=== PATIENT | male | born 1980 | race Two or more races ===

== ENCOUNTER 2022-10-21 16:39 | Inpatient (IN) | payer MEDICAID ==
[~2022-10-21] VITALS: Ht 165.1 cm; Wt 81.8 kg
[2022-10-21] MEDS ORDERED: SODIUM CHLORIDE 0.9% 1,000 ML IV ONE (18:30)
[2022-10-21 18:43] LABS: AMPHET/METH SCREEN,URINE NEGATIVE (NEGATIVE); BARBITURATE SCREEN, URINE NEGATIVE (NEGATIVE); BENZODIAZEPINES SCREEN,URINE NEGATIVE (NEGATIVE); CANNABINOID SCREEN,URINE POSITIVE (NEGATIVE); COCAINE SCREEN,URINE POSITIVE (NEGATIVE); METHADONE SCREEN, URINE NEGATIVE (NEGATIVE); OPIATE SCREEN,URINE NEGATIVE (NEGATIVE); PHENCYCLIDINE SCREEN,URINE NEGATIVE (NEGATIVE)
[2022-10-21] MEDS ORDERED: NALOXONE HCL 10 MG in DEXTROSE 5%-WATER 240 ML IV PRN ×2 (19:00→20:00)
[2022-10-21 19:12] LABS: BASOPHILS % (AUTO) 1.8 % (0.0-2.0); EOSINOPHILS % (AUTO) 1.6 % (1.0-6.0); HEMATOCRIT 54.2 % (41-53); HEMOGLOBIN 17.9 g/dL (13.5-17.5); LYMPHOCYTES # (AUTO) 1.8 K/uL (1.0-4.8); LYMPHOCYTES % (AUTO) 48.7 % (22.0-44.0); MEAN CORPUSCULAR HGB CONC 32.9 G/dL (31.0-37.0); MEAN CORPUSCULAR VOLUME 94 fL (80-100); MONOCYTES # (AUTO) 0.4 K/uL (0.1-1.0); MONOCYTES % (AUTO) 10.6 % (2.0-9.0); NEUTROPHILS # (AUTO) 1.4 K/uL (1.8-7.7); NEUTROPHILS % (AUTO) 37.3 % (40.0-70.0); PLATELET COUNT (AUTO) 267 K/uL (150-450); RED BLOOD CELL COUNT(AUTO) 5.76 MIL/uL (4.50-5.90); RED CELL DISTRIBUTION WIDTH 13.2 % (11.5-14.5)
[2022-10-21 19:16] LABS: ANION GAP 12 mmol/L (8-16); CALCIUM, TOTAL 8.7 mg/dL (8.8-10.5); CARBON DIOXIDE 24 mmol/L (22-29); CHLORIDE 103 mmol/L (98-107); CREATININE 1.28 mg/dL (0.60-1.30); GLOMERULAR FILTR. RATE CALC > 60 mL/min (>60); GLUCOSE,RANDOM 130 mg/dL (70-110); POTASSIUM 4.1 mmol/L (3.5-5.1); SODIUM SERUM 139 mmol/L (136-145); UREA NITROGEN, BLOOD 15 mg/dL (7-18)
[2022-10-21] MEDS ORDERED: ETOMIDATE 2 MG/ML 10 ML VIAL IVP ONE (19:30)
[2022-10-21] MEDS ORDERED: SUCCINYLCHOLINE CHLORIDE 20 MG/ML 10 ML VIAL IVP ONE (19:30)
[2022-10-21] MEDS: PROPOFOL 1000 MG/ISO-OSM 100 ML IV PRN ×2 (19:37→19:54)
[2022-10-21] MEDS ORDERED: MAGNESIUM SULFATE 2 GM, MVI, ADULT NO.1 WITH VIT K 10 ML, THIAMINE 100 MG, FOLIC ACID 1... IV ONE ×5 (20:00)
[2022-10-21] MEDS ORDERED: ZOLPIDEM TARTRATE 5 MG TABLET PO PRN (20:00)
[2022-10-21] MEDS ORDERED: FUROSEMIDE 40 MG/4 ML VIAL IVP ONE (20:00)
[2022-10-21] MEDS ORDERED: ONDANSETRON HCL 4 MG/2 ML VIAL IVP PRN (20:00)
[2022-10-21] MEDS ORDERED: MAGNESIUM HYDROXIDE SUSPENSION 30 ML UDCUP PO PRN (20:00)
[2022-10-21] MEDS ORDERED: BISACODYL 10 MG RECTAL RECTAL SUPPOSITORY PR PRN (20:00)
[2022-10-21] MEDS ORDERED: MORPHINE SULFATE 2 MG/ML SYRINGE IVP PRN (20:00)
[2022-10-21] MEDS ORDERED: HYDROCODONE/ACETAMINOPHEN 5-325 MG TABLET PO PRN (20:00)
[2022-10-21] MEDS: ACETAMINOPHEN 325 MG TABLET PO PRN (20:29)
[2022-10-21 20:44] LABS: ABG BASE EXCESS -12.5 mmol/L (-2.0-3.0); ABG CARBOXYHEMOGLOBIN 0.2 % (0.0-1.5); ABG HCO3 14.3 mmol/L (22.0-26.0); ABG METHEMOGLOBIN 0.4 % (0.0-1.5); ABG OXYGEN CONTENT 24.4 mL/dL (15.0-23.0); ABG OXYGEN SATURATION 86.3 % (95.0-98.0); ABG OXYHEMOGLOBIN 85.8 % (94.0-100.0); PO2, ARTERIAL BG 72.9 mmHg (88.0-96.0); SOURCE, BLOOD GAS ARTERIAL; TEMPERATURE, FAHRENHEIT, BG 101.8 FAHREN (96.0-98.6)
[2022-10-21 20:45] LABS: ABG PCO2 67 mmHg (35-45); ABG PH 7.051 (7.35-7.450); ABG TOTAL HEMOGLOBIN 20.3 G/dL (12.0-18.0); SITE, BLOOD GAS RT RADIAL; VT, ABG 600 ml
[2022-10-21] MEDS ORDERED: ACETAMINOPHEN 650 MG RECTAL SUPPOSITORY PR PRN (20:45)
[2022-10-21 20:46] LABS: PEEP,BG 10 cm H2O
[2022-10-21] MEDS: DOCUSATE SODIUM 100 MG CAPSULE PO SCH (21:00)
[2022-10-21] MEDS ORDERED: SODIUM CHLORIDE 0.9% 500 ML IV ONE (21:15)
[2022-10-21] MEDS: PHENYLEPHRINE 200 MG/D5%-WATER 250 ML IV PRN (21:46)
[2022-10-21] MEDS: PIPERACILLIN/TAZO 3.375 GM/D5W 50 ML IV SCH (21:50)
[2022-10-21 22:13] LABS: ABG BASE EXCESS -9.9 mmol/L (-2.0-3.0); ABG CARBOXYHEMOGLOBIN 0.3 % (0.0-1.5); ABG METHEMOGLOBIN 0.4 % (0.0-1.5); ABG OXYGEN CONTENT 24.4 mL/dL (15.0-23.0); ABG OXYGEN SATURATION 93.6 % (95.0-98.0); ABG OXYHEMOGLOBIN 92.9 % (94.0-100.0); ABG PCO2 48 mmHg (35-45); ABG TOTAL HEMOGLOBIN 18.7 G/dL (12.0-18.0); PO2, ARTERIAL BG 84.5 mmHg (88.0-96.0); SOURCE, BLOOD GAS ARTERIAL
[2022-10-21 22:14] LABS: ABG PH 7.199 (7.35-7.450); PEEP,BG 10 cm H2O; SITE, BLOOD GAS RT RADIAL; VT, ABG 600 ml
[2022-10-21] MEDS: MIDAZOLAM HCL 100 MG in SODIUM CHLORIDE 0.9% 180 ML IV PRN (22:16)
[2022-10-21] MEDS: NOREPINEPHRINE 8 MG/D5%-WATER 250 ML IV PRN (23:08)
[2022-10-21] MEDS: HEPARIN SODIUM,PORCINE 5,000 UNITS/ML VIAL SQ SCH (23:53)
[2022-10-22 00:14] LABS: COVID AG,FIA SOURCE NASOPHARYNGEAL
[2022-10-22] MEDS ORDERED: VASOPRESSIN 40 UNITS in DEXTROSE 5%-WATER 98 ML IV PRN (01:00)
[2022-10-22] MEDS ORDERED: SODIUM BICARBONATE [ADULT] 8.4% 50 MEQ/50 ML SYRINGE IVP ONE (01:00)
[2022-10-22 01:09] LABS: LACTIC ACID 4.6 mmol/L (0.4-2.0)
[2022-10-22] MEDS ORDERED: VANCOMYCIN HCL 1.25 GM in DEXTROSE 5%-WATER 250 ML IV ONE (01:15)
[2022-10-22] MEDS: PIPERACILLIN/TAZO 3.375 GM/D5W 50 ML IV SCH ×3 (02:45→21:11)
[2022-10-22] MEDS ORDERED: VANCOMYCIN HCL 1 GM in DEXTROSE 5%-WATER 250 ML IV SCH (08:00)
[2022-10-22] MEDS ORDERED: VANCOMYCIN HCL 1 GM/D5% WATER 200 ML IV SCH (08:00)
[2022-10-22] MEDS: PANTOPRAZOLE SODIUM 40 MG DR TABLET PO SCH (08:15)
[2022-10-22] MEDS: HEPARIN SODIUM,PORCINE 5,000 UNITS/ML VIAL SQ SCH ×2 (08:15→16:14)
[2022-10-22] MEDS: ACETAMINOPHEN 325 MG TABLET PO PRN ×2 (08:15→20:28)
[2022-10-22] MEDS: MIDAZOLAM HCL 100 MG in SODIUM CHLORIDE 0.9% 180 ML IV PRN ×2 (08:16→20:20)
[2022-10-22] MEDS: PHENYLEPHRINE 200 MG/D5%-WATER 250 ML IV PRN ×2 (08:17→23:42)
[2022-10-22] MEDS: DOCUSATE SODIUM 100 MG CAPSULE PO SCH ×2 (08:45→22:47)
[2022-10-22] MEDS ORDERED: DOXYCYCLINE HYCLATE 100 MG in DEXTROSE 5%-WATER 100 ML IV SCH ×2 (09:00→23:00)
[2022-10-22 09:07] LABS: BASOPHILS % (AUTO) 0.3 % (0.0-2.0); EOSINOPHILS % (AUTO) 0.4 % (1.0-6.0); HEMATOCRIT 44.5 % (41-53); LYMPHOCYTES # (AUTO) 1.7 K/uL (1.0-4.8); LYMPHOCYTES % (AUTO) 26.4 % (22.0-44.0); MEAN CORPUSCULAR HEMOGLOBIN 31.5 pg (26.0-34.0); MEAN CORPUSCULAR HGB CONC 33.7 G/dL (31.0-37.0); MEAN CORPUSCULAR VOLUME 93 fL (80-100); MONOCYTES # (AUTO) 0.5 K/uL (0.1-1.0); MONOCYTES % (AUTO) 8.5 % (2.0-9.0); NEUTROPHILS # (AUTO) 4.2 K/uL (1.8-7.7); NEUTROPHILS % (AUTO) 64.4 % (40.0-70.0); PLATELET COUNT (AUTO) 199 K/uL (150-450); RED BLOOD CELL COUNT(AUTO) 4.76 MIL/uL (4.50-5.90); RED CELL DISTRIBUTION WIDTH 13.2 % (11.5-14.5)
[2022-10-22 09:29] LABS: LACTIC ACID 4.2 mmol/L (0.4-2.0)
[2022-10-22 11:19] LABS: CALCIUM, TOTAL 7.8 mg/dL (8.8-10.5); CREATININE 2.08 mg/dL (0.60-1.30); POTASSIUM 4.1 mmol/L (3.5-5.1)
[2022-10-22] MEDS ORDERED: VANCOMYCIN HCL 1 GM/D5% WATER 200 ML IV PRN (12:00)
[2022-10-22] MEDS: NOREPINEPHRINE 8 MG/D5%-WATER 250 ML IV PRN ×2 (12:41→21:16)
[2022-10-22] MEDS: PROPOFOL 1000 MG/ISO-OSM 100 ML IV PRN (12:43)
[2022-10-22] MEDS: SODIUM CHLORIDE 0.9% 1,000 ML IV SCH (14:08)
[2022-10-22 15:21] LABS: ALBUMIN 2.7 g/dL (3.4-5.0); BILIRUBIN,DIRECT 1.5 mg/dL (0.00-0.20); BILIRUBIN,TOTAL 2.6 mg/dL (0.1-1.0)
[2022-10-22 15:31] LABS: APPEARANCE,URINE HAZY (CLEAR); BILIRUBIN,URINE NEGATIVE (NEGATIVE); GLUCOSE, URINE (UA) NEGATIVE (NEGATIVE); KETONES,URINE NEGATIVE (NEGATIVE); LEUKOCYTE ESTERASE ,URINE NEGATIVE (NEGATIVE); NITRATE,URINE NEGATIVE (NEGATIVE); OCCULT BLOOD,URINE LARGE (NEGATIVE); PROTEIN,URINE TRACE mg/dL (NEGATIVE); SPECIFIC GRAVITIY, URINE 1.005 (1.003-1.030); UROBILINOGEN,URINE <=1.0 mg/dL (<=1.0)
[2022-10-22 15:44] LABS: BACTERIA,URINE Few /HPF (None Seen); RBC,URINE 0-2 /HPF (0-2); SQUAMOUS EPITHELIAL CELL,UR Rare /LPF (None Seen)
[2022-10-22 15:45] LABS: COARSE GRANULAR CASTS,URINE 0-2 /LPF (None Seen)
[2022-10-22 20:00] VITALS: BP 128/79
[2022-10-22 20:12] LABS: CALCIUM, TOTAL 8.1 mg/dL (8.8-10.5); CREATININE 1.69 mg/dL (0.60-1.30); MAGNESIUM 2.2 mg/dL (1.80-2.40); PHOSPHORUS 2.8 mg/dL (2.5-4.9); POTASSIUM 4.6 mmol/L (3.5-5.1)
[2022-10-22 20:33] LABS: APPEARANCE,URINE HAZY (CLEAR); BILIRUBIN,URINE NEGATIVE (NEGATIVE); GLUCOSE, URINE (UA) NEGATIVE (NEGATIVE); KETONES,URINE NEGATIVE (NEGATIVE); LEUKOCYTE ESTERASE ,URINE NEGATIVE (NEGATIVE); NITRATE,URINE NEGATIVE (NEGATIVE); OCCULT BLOOD,URINE LARGE (NEGATIVE); PROTEIN,URINE TRACE mg/dL (NEGATIVE); SPECIFIC GRAVITIY, URINE 1.008 (1.003-1.030); UROBILINOGEN,URINE <=1.0 mg/dL (<=1.0)
[2022-10-22 20:39] LABS: CREATININE,URINE RANDOM 38.4 mg/dL (30.0-125.0); SODIUM,URINE RANDOM 36 mmol/l (20-110); UREA NITROGEN,URINE RANDOM 301 mg/dL (350-1000)
[2022-10-22 21:26] LABS: BACTERIA,URINE Few /HPF (None Seen); SQUAMOUS EPITHELIAL CELL,UR Few /LPF (None Seen); WBC,URINE 0-2 /HPF (0-5)
[2022-10-22 21:27] LABS: AMORPHOUS SEDIMENT,UR Few /LPF (None Seen)
[2022-10-22] MEDS: DOXYCYCLINE HYCLATE 100 MG in DEXTROSE 5%-WATER 100 ML IV SCH (22:47)
[2022-10-23] VITALS: BP 166/104
[2022-10-23] MEDS: HEPARIN SODIUM,PORCINE 5,000 UNITS/ML VIAL SQ SCH ×4 (00:33→23:10)
[2022-10-23] MEDS: SODIUM CHLORIDE 0.9% 1,000 ML IV SCH ×2 (01:16→15:38)
[2022-10-23] MEDS: PIPERACILLIN/TAZO 3.375 GM/D5W 50 ML IV SCH ×2 (03:28→08:51)
[2022-10-23 04:00] VITALS: BP 102/57
[2022-10-23 06:47] LABS: HEMATOCRIT 41.3 % (41-53); MEAN CORPUSCULAR HEMOGLOBIN 31.5 pg (26.0-34.0); MEAN CORPUSCULAR HGB CONC 33.8 G/dL (31.0-37.0); MEAN CORPUSCULAR VOLUME 93 fL (80-100); PLATELET COUNT (AUTO) 172 K/uL (150-450); RED BLOOD CELL COUNT(AUTO) 4.44 MIL/uL (4.50-5.90); RED CELL DISTRIBUTION WIDTH 13.4 % (11.5-14.5)
[2022-10-23 06:57] LABS: CALCIUM, TOTAL 8.3 mg/dL (8.8-10.5); CREATININE 1.55 mg/dL (0.60-1.30); MAGNESIUM 2.3 mg/dL (1.80-2.40); PHOSPHORUS 2.5 mg/dL (2.5-4.9); POTASSIUM 3.9 mmol/L (3.5-5.1)
[2022-10-23 07:58] LABS: BAND NEUTROPHILS % (MANUAL) 41 % (0-5); LYMPHOCYTES % (MANUAL) 17 % (22-44); SEGMENTED NEUTROPHILS % 42 % (40-70)
[2022-10-23 08:00] VITALS: BP 101/51
[2022-10-23] MEDS ORDERED: VANCOMYCIN HCL 1.25 GM in DEXTROSE 5%-WATER 250 ML IV ONE (08:30)
[2022-10-23] MEDS: PANTOPRAZOLE SODIUM 40 MG DR TABLET PO SCH (08:51)
[2022-10-23] MEDS: DOCUSATE SODIUM 100 MG CAPSULE PO SCH ×2 (08:51→20:42)
[2022-10-23] MEDS: PROPOFOL 1000 MG/ISO-OSM 100 ML IV PRN ×4 (08:53→21:17)
[2022-10-23] MEDS: ACETAMINOPHEN 325 MG TABLET PO PRN ×2 (08:54→20:43)
[2022-10-23] MEDS: MIDAZOLAM HCL 100 MG in SODIUM CHLORIDE 0.9% 180 ML IV PRN ×2 (09:47→20:40)
[2022-10-23 12:00] VITALS: BP 121/73
[2022-10-23] MEDS: DOXYCYCLINE HYCLATE 100 MG in DEXTROSE 5%-WATER 100 ML IV SCH ×2 (12:29→23:10)
[2022-10-23 13:10] LABS: ALBUMIN 2.5 g/dL (3.4-5.0); BILIRUBIN,DIRECT 1.2 mg/dL (0.00-0.20); BILIRUBIN,TOTAL 2.3 mg/dL (0.1-1.0); TOTAL PROTEIN, SERUM 5.8 g/dL (6.4-8.2)
[2022-10-23 14:36] LABS: ABG BASE EXCESS -3.1 mmol/L (-2.0-3.0); ABG CARBOXYHEMOGLOBIN 0.3 % (0.0-1.5); ABG HCO3 22.6 mmol/L (22.0-26.0); ABG METHEMOGLOBIN 0.3 % (0.0-1.5); ABG OXYGEN CONTENT 17.8 mL/dL (15.0-23.0); ABG OXYGEN SATURATION 96.2 % (95.0-98.0); ABG OXYHEMOGLOBIN 95.6 % (94.0-100.0); ABG PCO2 32 mmHg (35-45); ABG PH 7.437 (7.35-7.450); ABG TOTAL HEMOGLOBIN 13.2 G/dL (12.0-18.0); O2 DEVICE,BLOOD GAS VENTILATOR (ROOM AIR); PO2, ARTERIAL BG 80.7 mmHg (88.0-96.0); SITE, BLOOD GAS LFT RADIAL; SOURCE, BLOOD GAS ARTERIAL
[2022-10-23 14:37] LABS: PEEP,BG 5 cm H2O; VT, ABG 550 ml
[2022-10-23] MEDS: LevETIRAcetam 500 MG in DEXTROSE 5%-WATER 100 ML IV SCH (15:12)
[2022-10-23 16:00] VITALS: BP 110/64
[2022-10-23] MEDS ORDERED: LevETIRAcetam 500 MG in DEXTROSE 5%-WATER 100 ML IV SCH (16:00)
[2022-10-23] MEDS: MetroNIDAZOLE 500 MG TABLET PO SCH ×2 (16:34→23:10)
[2022-10-23] MEDS: CefTRIAXone SODIUM 2 GM in DEXTROSE 5%-WATER 50 ML IV SCH (16:35)
[2022-10-23] MEDS: ACYCLOVIR 700 MG in DEXTROSE 5%-WATER 100 ML IV SCH (16:35)
[2022-10-23] MEDS: ALBUTEROL SULFATE 2.5 MG/0.5 ML NEB SOLUTION NEB SCH (19:10)
[2022-10-23] MEDS: ACETYLCYSTEINE 10% 100 MG/ML 4 ML NEB SOLUTION NEB SCH (19:10)
[2022-10-23 20:00] VITALS: BP 118/64
[2022-10-23] MEDS: VANCOMYCIN HCL 1 GM/D5% WATER 200 ML IV SCH (20:42)
[2022-10-24] VITALS: BP 124/73
[2022-10-24] MEDS: PHENYLEPHRINE 200 MG/D5%-WATER 250 ML IV PRN (01:11)
[2022-10-24] MEDS: ACETYLCYSTEINE 10% 100 MG/ML 4 ML NEB SOLUTION NEB SCH ×4 (01:27→19:10)
[2022-10-24] MEDS: ALBUTEROL SULFATE 2.5 MG/0.5 ML NEB SOLUTION NEB SCH ×4 (01:27→19:10)
[2022-10-24] MEDS: SODIUM CHLORIDE 0.9% 1,000 ML IV SCH ×2 (01:54→16:00)
[2022-10-24] MEDS: PROPOFOL 1000 MG/ISO-OSM 100 ML IV PRN ×5 (01:55→23:38)
[2022-10-24] MEDS: LevETIRAcetam 500 MG in DEXTROSE 5%-WATER 100 ML IV SCH ×2 (02:19→16:00)
[2022-10-24 04:00] VITALS: BP 149/91
[2022-10-24] MEDS: CefTRIAXone SODIUM 2 GM in DEXTROSE 5%-WATER 50 ML IV SCH ×2 (04:01→16:14)
[2022-10-24] MEDS: ACYCLOVIR 700 MG in DEXTROSE 5%-WATER 100 ML IV SCH ×2 (04:02→16:15)
[2022-10-24 05:56] LABS: HEMATOCRIT 39.6 % (41-53); HEMOGLOBIN 13.5 g/dL (13.5-17.5); MEAN CORPUSCULAR HEMOGLOBIN 31.9 pg (26.0-34.0); MEAN CORPUSCULAR VOLUME 94 fL (80-100); PLATELET COUNT (AUTO) 175 K/uL (150-450); RED BLOOD CELL COUNT(AUTO) 4.23 MIL/uL (4.50-5.90); RED CELL DISTRIBUTION WIDTH 13.4 % (11.5-14.5)
[2022-10-24 06:10] LABS: ALANINE AMINOTRANSFERASE 117 U/L (12-78); ALBUMIN 2.4 g/dL (3.4-5.0); ALKALINE PHOSPHATASE 79 U/L (46-116); ASPARTATE AMINOTRANSFERASE 81 U/L (15-37); CALCIUM, TOTAL 9.1 mg/dL (8.8-10.5); CREATININE 1.15 mg/dL (0.60-1.30); GLOMERULAR FILTR. RATE CALC > 60 mL/min (>60); GLUCOSE,RANDOM 95 mg/dL (70-110); PHOSPHORUS 2.3 mg/dL (2.5-4.9); UREA NITROGEN, BLOOD 15 mg/dL (7-18)
[2022-10-24 06:44] LABS: ANION GAP 7 mmol/L (8-16); BILIRUBIN,TOTAL 0.9 mg/dL (0.1-1.0); CARBON DIOXIDE 27 mmol/L (22-29); CHLORIDE 109 mmol/L (98-107); CREATINE KINASE, TOTAL ONLY 649 U/L (39-308); POTASSIUM 3.9 mmol/L (3.5-5.1); SODIUM SERUM 143 mmol/L (136-145); TOTAL PROTEIN, SERUM 6.4 g/dL (6.4-8.2)
[2022-10-24 07:26] LABS: BAND NEUTROPHILS % (MANUAL) 39 % (0-5); EOSINOPHILS % (MANUAL) 1 % (1-6); LYMPHOCYTES % (MANUAL) 15 % (22-44); MONOCYTES % (MANUAL) 4 % (2-9); SEGMENTED NEUTROPHILS % 41 % (40-70)
[2022-10-24 08:00] VITALS: BP 130/75
[2022-10-24] MEDS: VANCOMYCIN HCL 1 GM/D5% WATER 200 ML IV SCH (08:04)
[2022-10-24] MEDS: MIDAZOLAM HCL 100 MG in SODIUM CHLORIDE 0.9% 180 ML IV PRN (08:05)
[2022-10-24] MEDS: DOCUSATE SODIUM 100 MG CAPSULE PO SCH ×2 (08:06→20:09)
[2022-10-24] MEDS: HEPARIN SODIUM,PORCINE 5,000 UNITS/ML VIAL SQ SCH ×3 (08:06→23:37)
[2022-10-24] MEDS: MetroNIDAZOLE 500 MG TABLET PO SCH ×3 (08:06→23:37)
[2022-10-24] MEDS: PANTOPRAZOLE SODIUM 40 MG DR TABLET PO SCH (08:06)
[2022-10-24] MEDS: SODIUM,POTASSIUM PHOSPHATES POWDER PACKET PO SCH ×2 (09:31→20:08)
[2022-10-24] MEDS: DOXYCYCLINE HYCLATE 100 MG in DEXTROSE 5%-WATER 100 ML IV SCH ×2 (10:13→23:36)
[2022-10-24] MEDS: ACETAMINOPHEN 325 MG TABLET PO PRN (10:13)
[2022-10-24 12:00] VITALS: BP 118/71
[2022-10-24 16:00] VITALS: BP 124/70
[2022-10-24 20:00] VITALS: BP 122/68
[2022-10-24] MEDS: VANCOMYCIN HCL 1.25 GM in DEXTROSE 5%-WATER 250 ML IV SCH (20:08)
[2022-10-25] VITALS: BP 118/68
[2022-10-25] MEDS: MIDAZOLAM HCL 100 MG in SODIUM CHLORIDE 0.9% 180 ML IV PRN ×2 (01:01→18:17)
[2022-10-25] MEDS: ACETYLCYSTEINE 10% 100 MG/ML 4 ML NEB SOLUTION NEB SCH ×4 (01:12→19:46)
[2022-10-25] MEDS: ALBUTEROL SULFATE 2.5 MG/0.5 ML NEB SOLUTION NEB SCH ×4 (01:12→19:46)
[2022-10-25] MEDS: LevETIRAcetam 500 MG in DEXTROSE 5%-WATER 100 ML IV SCH ×2 (03:37→16:20)
[2022-10-25] MEDS: SODIUM CHLORIDE 0.9% 1,000 ML IV SCH ×2 (03:38→18:16)
[2022-10-25 04:00] VITALS: BP 136/81
[2022-10-25] MEDS: CefTRIAXone SODIUM 2 GM in DEXTROSE 5%-WATER 50 ML IV SCH ×2 (04:27→16:19)
[2022-10-25] MEDS: ACYCLOVIR 700 MG in DEXTROSE 5%-WATER 100 ML IV SCH ×2 (04:28→16:20)
[2022-10-25 06:31] LABS: ANION GAP 10 mmol/L (8-16); CALCIUM, TOTAL 7.6 mg/dL (8.8-10.5); CARBON DIOXIDE 24 mmol/L (22-29); CHLORIDE 109 mmol/L (98-107); CREATININE 0.79 mg/dL (0.60-1.30); GLOMERULAR FILTR. RATE CALC > 60 mL/min (>60); GLUCOSE,RANDOM 207 mg/dL (70-110); SODIUM SERUM 143 mmol/L (136-145); UREA NITROGEN, BLOOD 9 mg/dL (7-18)
[2022-10-25] MEDS: PROPOFOL 1000 MG/ISO-OSM 100 ML IV PRN ×3 (06:48→23:00)
[2022-10-25 06:55] LABS: POTASSIUM 2.8 mmol/L (3.5-5.1)
[2022-10-25 07:02] LABS: BASOPHILS % (AUTO) 0.3 % (0.0-2.0); EOSINOPHILS % (AUTO) 2.5 % (1.0-6.0); HEMATOCRIT 29.5 % (41-53); HEMOGLOBIN 10.4 g/dL (13.5-17.5); LYMPHOCYTES # (AUTO) 0.9 K/uL (1.0-4.8); LYMPHOCYTES % (AUTO) 12.3 % (22.0-44.0); MEAN CORPUSCULAR HEMOGLOBIN 32.8 pg (26.0-34.0); MEAN CORPUSCULAR HGB CONC 35.1 G/dL (31.0-37.0); MEAN CORPUSCULAR VOLUME 93 fL (80-100); MONOCYTES # (AUTO) 0.4 K/uL (0.1-1.0); MONOCYTES % (AUTO) 5.1 % (2.0-9.0); NEUTROPHILS # (AUTO) 6.2 K/uL (1.8-7.7); NEUTROPHILS % (AUTO) 79.8 % (40.0-70.0); PLATELET COUNT (AUTO) 135 K/uL (150-450); RED BLOOD CELL COUNT(AUTO) 3.16 MIL/uL (4.50-5.90); RED CELL DISTRIBUTION WIDTH 13.3 % (11.5-14.5)
[2022-10-25 08:00] VITALS: BP 123/76
[2022-10-25] MEDS ORDERED: POTASSIUM CHLORIDE 20 MEQ ER TABLET PO ONE (08:00)
[2022-10-25] MEDS: VANCOMYCIN HCL 1.25 GM in DEXTROSE 5%-WATER 250 ML IV SCH (08:05)
[2022-10-25 08:06] LABS: HEPATITIS C AB (EIA) Non Reactive (Non Reactive)
[2022-10-25] MEDS: MetroNIDAZOLE 500 MG TABLET PO SCH ×2 (08:06→16:40)
[2022-10-25] MEDS: HEPARIN SODIUM,PORCINE 5,000 UNITS/ML VIAL SQ SCH ×2 (08:06→16:38)
[2022-10-25] MEDS: PANTOPRAZOLE SODIUM 40 MG DR TABLET PO SCH (08:06)
[2022-10-25] MEDS: DOCUSATE SODIUM 100 MG CAPSULE PO SCH ×2 (08:06→20:08)
[2022-10-25] MEDS: POTASSIUM CHL 10 MEQ/WATER 50 ML IV SCH ×2 (08:19→09:17)
[2022-10-25 12:00] VITALS: BP 139/79
[2022-10-25] MEDS: DOXYCYCLINE HYCLATE 100 MG in DEXTROSE 5%-WATER 100 ML IV SCH ×2 (12:41→23:05)
[2022-10-25 13:28] LABS: ANION GAP 7 mmol/L (8-16); CALCIUM, TOTAL 8.5 mg/dL (8.8-10.5); CARBON DIOXIDE 26 mmol/L (22-29); CHLORIDE 111 mmol/L (98-107); CREATININE 0.76 mg/dL (0.60-1.30); GLOMERULAR FILTR. RATE CALC > 60 mL/min (>60); GLUCOSE,RANDOM 113 mg/dL (70-110); PHOSPHORUS 3.1 mg/dL (2.5-4.9); POTASSIUM 3.5 mmol/L (3.5-5.1); SODIUM SERUM 144 mmol/L (136-145); UREA NITROGEN, BLOOD 8 mg/dL (7-18)
[2022-10-25 15:07] LABS: S PNEUMO SOURCE Urine; STREP PNEUMONIAE AG URINE Negative (Negative)
[2022-10-25 16:00] VITALS: BP 132/68
[2022-10-25] MEDS: VANCOMYCIN HCL 1 GM/D5% WATER 200 ML IV SCH (16:40)
[2022-10-25 19:07] LABS: LEGIONELLA PNEUMO AG URINE Negative (Negative)
[2022-10-25 20:00] VITALS: BP 140/72
[2022-10-26] VITALS: BP 143/90
[2022-10-26] MEDS: ALBUTEROL SULFATE 2.5 MG/0.5 ML NEB SOLUTION NEB SCH ×4 (01:55→20:07)
[2022-10-26] MEDS: ACETYLCYSTEINE 10% 100 MG/ML 4 ML NEB SOLUTION NEB SCH ×4 (01:55→20:07)
[2022-10-26] MEDS: LevETIRAcetam 500 MG in DEXTROSE 5%-WATER 100 ML IV SCH ×2 (03:01→14:50)
[2022-10-26] MEDS: CefTRIAXone SODIUM 2 GM in DEXTROSE 5%-WATER 50 ML IV SCH ×2 (03:20→15:38)
[2022-10-26] MEDS: PROPOFOL 1000 MG/ISO-OSM 100 ML IV PRN ×5 (03:21→21:08)
[2022-10-26 04:00] VITALS: BP 138/81
[2022-10-26] MEDS: ACYCLOVIR 700 MG in DEXTROSE 5%-WATER 100 ML IV SCH ×2 (04:28→17:47)
[2022-10-26 06:44] LABS: BASOPHILS % (AUTO) 0.5 % (0.0-2.0); EOSINOPHILS % (AUTO) 4.6 % (1.0-6.0); HEMATOCRIT 34.1 % (41-53); HEMOGLOBIN 11.5 g/dL (13.5-17.5); LYMPHOCYTES # (AUTO) 1.1 K/uL (1.0-4.8); LYMPHOCYTES % (AUTO) 18.4 % (22.0-44.0); MEAN CORPUSCULAR HEMOGLOBIN 31.3 pg (26.0-34.0); MEAN CORPUSCULAR HGB CONC 33.8 G/dL (31.0-37.0); MEAN CORPUSCULAR VOLUME 93 fL (80-100); MONOCYTES # (AUTO) 0.7 K/uL (0.1-1.0); MONOCYTES % (AUTO) 10.9 % (2.0-9.0); NEUTROPHILS % (AUTO) 65.6 % (40.0-70.0); PLATELET COUNT (AUTO) 129 K/uL (150-450); RED BLOOD CELL COUNT(AUTO) 3.68 MIL/uL (4.50-5.90)
[2022-10-26 06:55] LABS: ANION GAP 7 mmol/L (8-16); CALCIUM, TOTAL 8.7 mg/dL (8.8-10.5); CARBON DIOXIDE 27 mmol/L (22-29); CHLORIDE 110 mmol/L (98-107); CREATININE 0.64 mg/dL (0.60-1.30); GLOMERULAR FILTR. RATE CALC > 60 mL/min (>60); GLUCOSE,RANDOM 110 mg/dL (70-110); PHOSPHORUS 3.1 mg/dL (2.5-4.9); POTASSIUM 3.5 mmol/L (3.5-5.1); SODIUM SERUM 144 mmol/L (136-145); UREA NITROGEN, BLOOD 7 mg/dL (7-18)
[2022-10-26] MEDS ORDERED: 0.9% SODIUM CHLORIDE 5 ML NEB SOLUTION NEB ONE (07:32)
[2022-10-26] MEDS ORDERED: SODIUM CHLORIDE 0.9% 250 ML IV ONE (07:59)
[2022-10-26 08:00] VITALS: BP 146/96
[2022-10-26] MEDS: PANTOPRAZOLE SODIUM 40 MG DR TABLET PO SCH (08:03)
[2022-10-26] MEDS: VANCOMYCIN HCL 1 GM/D5% WATER 200 ML IV SCH ×4 (08:03→23:59)
[2022-10-26] MEDS: DOCUSATE SODIUM 100 MG CAPSULE PO SCH (08:03)
[2022-10-26] MEDS: MetroNIDAZOLE 500 MG TABLET PO SCH ×4 (08:03→23:59)
[2022-10-26] MEDS: HEPARIN SODIUM,PORCINE 5,000 UNITS/ML VIAL SQ SCH ×4 (08:04→23:59)
[2022-10-26] MEDS: MIDAZOLAM HCL 100 MG in SODIUM CHLORIDE 0.9% 180 ML IV PRN (08:05)
[2022-10-26] MEDS: POTASSIUM CHLORIDE 10 MEQ in DEXTROSE 5%-0.45% SODIUM CHL 1,000 ML IV SCH ×2 (08:25→23:10)
[2022-10-26] MEDS: DEXMEDETOMIDINE HCL 400 MCG in SODIUM CHLORIDE 0.9% 96 ML IV PRN (10:12)
[2022-10-26] MEDS: DOXYCYCLINE HYCLATE 100 MG in DEXTROSE 5%-WATER 100 ML IV SCH ×2 (11:05→23:11)
[2022-10-26 12:00] VITALS: BP 127/59
[2022-10-26 16:00] VITALS: BP 140/98
[2022-10-26] MEDS: HydrALAZINE HCL 20 MG/ML VIAL IVP PRN (17:47)
[2022-10-26 20:00] VITALS: BP 118/72
[2022-10-26] MEDS: DOCUSATE SODIUM 100 MG/10 ML LIQUID UDCUP NG SCH (21:16)
[2022-10-27] VITALS: BP 104/66
[2022-10-27] MEDS: DEXMEDETOMIDINE HCL 400 MCG in SODIUM CHLORIDE 0.9% 96 ML IV PRN ×4 (00:27→20:51)
[2022-10-27] MEDS: PROPOFOL 1000 MG/ISO-OSM 100 ML IV PRN ×3 (00:29→22:00)
[2022-10-27] MEDS ORDERED: SODIUM CHLORIDE 0.9% 500 ML IV ONE (01:19)
[2022-10-27] MEDS: ALBUTEROL SULFATE 2.5 MG/0.5 ML NEB SOLUTION NEB SCH ×4 (01:39→19:40)
[2022-10-27] MEDS: ACETYLCYSTEINE 10% 100 MG/ML 4 ML NEB SOLUTION NEB SCH ×4 (01:39→19:40)
[2022-10-27] MEDS: LevETIRAcetam 500 MG in DEXTROSE 5%-WATER 100 ML IV SCH ×2 (02:57→15:28)
[2022-10-27] MEDS: CefTRIAXone SODIUM 2 GM in DEXTROSE 5%-WATER 50 ML IV SCH ×2 (03:56→17:11)
[2022-10-27 04:00] VITALS: BP 118/71
[2022-10-27] MEDS: ACYCLOVIR 700 MG in DEXTROSE 5%-WATER 100 ML IV SCH ×2 (05:14→17:28)
[2022-10-27] MEDS: MIDAZOLAM HCL 100 MG in SODIUM CHLORIDE 0.9% 180 ML IV PRN (05:16)
[2022-10-27 05:59] LABS: BASOPHILS % (AUTO) 0.6 % (0.0-2.0); HEMATOCRIT 34.1 % (41-53); HEMOGLOBIN 11.8 g/dL (13.5-17.5); LYMPHOCYTES # (AUTO) 1.4 K/uL (1.0-4.8); LYMPHOCYTES % (AUTO) 16.8 % (22.0-44.0); MEAN CORPUSCULAR HEMOGLOBIN 31.9 pg (26.0-34.0); MEAN CORPUSCULAR HGB CONC 34.6 G/dL (31.0-37.0); MEAN CORPUSCULAR VOLUME 92 fL (80-100); MONOCYTES # (AUTO) 0.7 K/uL (0.1-1.0); NEUTROPHILS # (AUTO) 6.1 K/uL (1.8-7.7); NEUTROPHILS % (AUTO) 71.6 % (40.0-70.0); PLATELET COUNT (AUTO) 209 K/uL (150-450); RED BLOOD CELL COUNT(AUTO) 3.69 MIL/uL (4.50-5.90); RED CELL DISTRIBUTION WIDTH 13.3 % (11.5-14.5)
[2022-10-27 06:12] LABS: ANION GAP 6 mmol/L (8-16); CALCIUM, TOTAL 8.9 mg/dL (8.8-10.5); CARBON DIOXIDE 29 mmol/L (22-29); CHLORIDE 112 mmol/L (98-107); CREATININE 0.71 mg/dL (0.60-1.30); GLOMERULAR FILTR. RATE CALC > 60 mL/min (>60); GLUCOSE,RANDOM 146 mg/dL (70-110); PHOSPHORUS 4.2 mg/dL (2.5-4.9); POTASSIUM 3.5 mmol/L (3.5-5.1); SODIUM SERUM 147 mmol/L (136-145); UREA NITROGEN, BLOOD 6 mg/dL (7-18); VANCOMYCIN,RANDOM 18.2 mcg/mL (25.0-50.0)
[2022-10-27 08:00] VITALS: BP 114/74
[2022-10-27] MEDS: HEPARIN SODIUM,PORCINE 5,000 UNITS/ML VIAL SQ SCH ×3 (09:07→23:56)
[2022-10-27] MEDS: PANTOPRAZOLE SODIUM 40 MG/VIAL IVP SCH (09:07)
[2022-10-27] MEDS: DOCUSATE SODIUM 100 MG/10 ML LIQUID UDCUP NG SCH ×2 (09:07→20:49)
[2022-10-27] MEDS: MetroNIDAZOLE 500 MG TABLET PO SCH ×3 (09:08→23:56)
[2022-10-27] MEDS: POTASSIUM CHL 20 MEQ/D5-0.45NS 1,000 ML IV SCH (09:08)
[2022-10-27] MEDS: DOXYCYCLINE HYCLATE 100 MG in DEXTROSE 5%-WATER 100 ML IV SCH ×2 (09:08→23:00)
[2022-10-27] MEDS: VANCOMYCIN HCL 1 GM/D5% WATER 200 ML IV SCH (09:58)
[2022-10-27 12:00] VITALS: BP 135/67
[2022-10-27 16:00] VITALS: BP 148/93
[2022-10-27] MEDS: VANCOMYCIN HCL 1.25 GM in DEXTROSE 5%-WATER 250 ML IV SCH ×2 (17:11→23:54)
[2022-10-27 20:00] VITALS: BP 155/105
[2022-10-27] MEDS: HydrALAZINE HCL 20 MG/ML VIAL IVP PRN (20:39)
[2022-10-27] MEDS: LORazepam 2 MG/ML VIAL IM PRN (21:36)
[2022-10-28] VITALS: BP 130/92
[2022-10-28] MEDS: PROPOFOL 1000 MG/ISO-OSM 100 ML IV PRN ×5 (00:26→18:11)
[2022-10-28] MEDS: ACETAMINOPHEN 325 MG TABLET PO PRN (00:28)
[2022-10-28] MEDS: LORazepam 2 MG/ML VIAL IM PRN (01:02)
[2022-10-28] MEDS: DEXMEDETOMIDINE HCL 400 MCG in SODIUM CHLORIDE 0.9% 96 ML IV PRN ×5 (01:50→23:04)
[2022-10-28] MEDS: ALBUTEROL SULFATE 2.5 MG/0.5 ML NEB SOLUTION NEB SCH ×4 (02:10→19:53)
[2022-10-28] MEDS: ACETYLCYSTEINE 10% 100 MG/ML 4 ML NEB SOLUTION NEB SCH ×4 (02:10→19:53)
[2022-10-28] MEDS: POTASSIUM CHL 20 MEQ/D5-0.45NS 1,000 ML IV SCH (03:26)
[2022-10-28] MEDS: LevETIRAcetam 500 MG in DEXTROSE 5%-WATER 100 ML IV SCH ×2 (03:29→15:11)
[2022-10-28 04:00] VITALS: BP 124/61
[2022-10-28] MEDS: CefTRIAXone SODIUM 2 GM in DEXTROSE 5%-WATER 50 ML IV SCH ×2 (04:20→15:32)
[2022-10-28] MEDS: ACYCLOVIR 700 MG in DEXTROSE 5%-WATER 100 ML IV SCH ×2 (04:53→17:55)
[2022-10-28 06:07] LABS: BASOPHILS % (AUTO) 0.4 % (0.0-2.0); EOSINOPHILS % (AUTO) 2.8 % (1.0-6.0); HEMATOCRIT 33.8 % (41-53); HEMOGLOBIN 11.3 g/dL (13.5-17.5); LYMPHOCYTES # (AUTO) 1.4 K/uL (1.0-4.8); LYMPHOCYTES % (AUTO) 12.3 % (22.0-44.0); MEAN CORPUSCULAR HEMOGLOBIN 31.1 pg (26.0-34.0); MEAN CORPUSCULAR HGB CONC 33.5 G/dL (31.0-37.0); MEAN CORPUSCULAR VOLUME 93 fL (80-100); MONOCYTES # (AUTO) 0.8 K/uL (0.1-1.0); MONOCYTES % (AUTO) 7.4 % (2.0-9.0); NEUTROPHILS # (AUTO) 8.6 K/uL (1.8-7.7); NEUTROPHILS % (AUTO) 77.1 % (40.0-70.0); PLATELET COUNT (AUTO) 240 K/uL (150-450); RED BLOOD CELL COUNT(AUTO) 3.64 MIL/uL (4.50-5.90); RED CELL DISTRIBUTION WIDTH 13.3 % (11.5-14.5)
[2022-10-28 06:10] LABS: ANION GAP 7 mmol/L (8-16); CARBON DIOXIDE 28 mmol/L (22-29); CHLORIDE 112 mmol/L (98-107); CREATININE 0.67 mg/dL (0.60-1.30); GLOMERULAR FILTR. RATE CALC > 60 mL/min (>60); GLUCOSE,RANDOM 176 mg/dL (70-110); PHOSPHORUS 4.1 mg/dL (2.5-4.9); POTASSIUM 3.3 mmol/L (3.5-5.1); SODIUM SERUM 147 mmol/L (136-145); UREA NITROGEN, BLOOD 7 mg/dL (7-18)
[2022-10-28 08:00] VITALS: BP 119/72
[2022-10-28] MEDS: DOCUSATE SODIUM 100 MG/10 ML LIQUID UDCUP NG SCH ×2 (08:24→21:00)
[2022-10-28] MEDS: PANTOPRAZOLE SODIUM 40 MG/VIAL IVP SCH (08:24)
[2022-10-28] MEDS: MetroNIDAZOLE 500 MG TABLET PO SCH ×2 (08:24→15:32)
[2022-10-28] MEDS: HEPARIN SODIUM,PORCINE 5,000 UNITS/ML VIAL SQ SCH ×2 (08:24→15:32)
[2022-10-28] MEDS: MIDAZOLAM HCL 100 MG in SODIUM CHLORIDE 0.9% 180 ML IV PRN (08:41)
[2022-10-28] MEDS: VANCOMYCIN HCL 1.25 GM in DEXTROSE 5%-WATER 250 ML IV SCH ×2 (09:11→16:33)
[2022-10-28] MEDS ORDERED: POTASSIUM CHL 20 MEQ/D5-NS 1,000 ML IV SCH (10:11)
[2022-10-28] MEDS ORDERED: POTASSIUM CHLORIDE 20 MEQ ER TABLET PO PRN (10:45)
[2022-10-28] MEDS: DOXYCYCLINE HYCLATE 100 MG in DEXTROSE 5%-WATER 100 ML IV SCH ×2 (11:35→23:04)
[2022-10-28 12:00] VITALS: BP 118/68
[2022-10-28] MEDS: POTASSIUM CHLORIDE 20 MEQ in DEXTROSE 5%-WATER 1,000 ML IV SCH (12:05)
[2022-10-28 13:07] LABS: ABG BASE EXCESS -2.6 mmol/L (-2.0-3.0); ABG CARBOXYHEMOGLOBIN 0.4 % (0.0-1.5); ABG HCO3 22.9 mmol/L (22.0-26.0); ABG METHEMOGLOBIN 0.3 % (0.0-1.5); ABG OXYGEN CONTENT 16.4 mL/dL (15.0-23.0); ABG OXYGEN SATURATION 94.6 % (95.0-98.0); ABG OXYHEMOGLOBIN 93.9 % (94.0-100.0); ABG PCO2 33 mmHg (35-45); ABG TOTAL HEMOGLOBIN 12.4 G/dL (12.0-18.0); PO2, ARTERIAL BG 70.3 mmHg (88.0-96.0); SOURCE, BLOOD GAS ARTERIAL; TEMPERATURE, FAHRENHEIT, BG 98.3 FAHREN (96.0-98.6)
[2022-10-28 13:08] LABS: O2 DEVICE,BLOOD GAS VENTILATOR (ROOM AIR); PEEP,BG 5 cm H2O; SITE, BLOOD GAS RT RADIAL; VENT MODE, BG Press. Control Vent (ROOM AIR)
[2022-10-28 13:09] LABS: ABG A-A DIFF O2 141.6 mmHg (10-20.0); SPONTANEOUS VT, BG 547 ml
[2022-10-28] MEDS: POTASSIUM CHL 10 MEQ/WATER 50 ML IV PRN ×5 (13:59→23:54)
[2022-10-28] MEDS ORDERED: SODIUM CHLORIDE 0.9% 250 ML IV ONE (15:14)
[2022-10-28 16:00] VITALS: BP 154/99
[2022-10-28] MEDS ORDERED: FUROSEMIDE 20 MG/2 ML VIAL IVP ONE (16:45)
[2022-10-28 20:00] VITALS: BP 141/80
[2022-10-28] MEDS: HydrALAZINE HCL 20 MG/ML VIAL IVP PRN (22:04)
[2022-10-29] VITALS: BP 143/87
[2022-10-29] MEDS: MetroNIDAZOLE 500 MG TABLET PO SCH ×3 (00:40→15:20)
[2022-10-29] MEDS: VANCOMYCIN HCL 1.25 GM in DEXTROSE 5%-WATER 250 ML IV SCH ×2 (00:40→08:23)
[2022-10-29] MEDS: HEPARIN SODIUM,PORCINE 5,000 UNITS/ML VIAL SQ SCH ×3 (00:51→15:20)
[2022-10-29] MEDS ORDERED: SODIUM CHLORIDE 0.9% 250 ML IV ONE (00:55)
[2022-10-29] MEDS: POTASSIUM CHLORIDE 20 MEQ in DEXTROSE 5%-WATER 1,000 ML IV SCH ×2 (01:20→15:20)
[2022-10-29] MEDS: POTASSIUM CHL 10 MEQ/WATER 50 ML IV PRN ×4 (01:25→09:46)
[2022-10-29] MEDS: ALBUTEROL SULFATE 2.5 MG/0.5 ML NEB SOLUTION NEB SCH ×4 (01:43→20:24)
[2022-10-29] MEDS: ACETYLCYSTEINE 10% 100 MG/ML 4 ML NEB SOLUTION NEB SCH ×4 (01:43→20:24)
[2022-10-29] MEDS: ACETAMINOPHEN 325 MG TABLET PO PRN ×2 (01:57→12:17)
[2022-10-29] MEDS: LevETIRAcetam 500 MG in DEXTROSE 5%-WATER 100 ML IV SCH ×2 (03:13→15:20)
[2022-10-29] MEDS: PROPOFOL 1000 MG/ISO-OSM 100 ML IV PRN ×4 (03:21→20:55)
[2022-10-29] MEDS: CefTRIAXone SODIUM 2 GM in DEXTROSE 5%-WATER 50 ML IV SCH ×2 (03:50→15:20)
[2022-10-29 04:00] VITALS: BP 113/63
[2022-10-29] MEDS: ACYCLOVIR 700 MG in DEXTROSE 5%-WATER 100 ML IV SCH ×2 (04:24→17:05)
[2022-10-29] MEDS: DEXMEDETOMIDINE HCL 400 MCG in SODIUM CHLORIDE 0.9% 96 ML IV PRN ×3 (05:41→17:05)
[2022-10-29 06:29] LABS: ANION GAP 6 mmol/L (8-16); CALCIUM, TOTAL 8.7 mg/dL (8.8-10.5); CARBON DIOXIDE 28 mmol/L (22-29); CHLORIDE 110 mmol/L (98-107); CREATININE 0.66 mg/dL (0.60-1.30); GLOMERULAR FILTR. RATE CALC > 60 mL/min (>60); GLUCOSE,RANDOM 219 mg/dL (70-110); POTASSIUM 3.4 mmol/L (3.5-5.1); SODIUM SERUM 144 mmol/L (136-145); UREA NITROGEN, BLOOD 8 mg/dL (7-18); VANCOMYCIN,RANDOM 19.6 mcg/mL (25.0-50.0)
[2022-10-29 08:00] VITALS: BP 138/80
[2022-10-29] MEDS: PANTOPRAZOLE SODIUM 40 MG/VIAL IVP SCH (08:23)
[2022-10-29] MEDS: DOCUSATE SODIUM 100 MG/10 ML LIQUID UDCUP NG SCH ×2 (08:25→20:55)
[2022-10-29] MEDS: HydrALAZINE HCL 20 MG/ML VIAL IVP PRN (09:43)
[2022-10-29] MEDS: DOXYCYCLINE HYCLATE 100 MG in DEXTROSE 5%-WATER 100 ML IV SCH (10:47)
[2022-10-29 12:00] VITALS: BP 151/92
[2022-10-29] MEDS: MIDAZOLAM HCL 100 MG in SODIUM CHLORIDE 0.9% 180 ML IV PRN (12:17)
[2022-10-29] MEDS: VANCOMYCIN 1GM/WATER(PEG/NADA) 200 ML IV SCH ×2 (12:17→18:34)
[2022-10-29 16:00] VITALS: BP 134/85
[2022-10-29 20:00] VITALS: BP 124/77
[2022-10-30] VITALS: BP 146/90
[2022-10-30] MEDS ORDERED: SODIUM CHLORIDE 0.9% 250 ML IV ONE ×2 (00:13→00:49)
[2022-10-30] MEDS: DOXYCYCLINE HYCLATE 100 MG in DEXTROSE 5%-WATER 100 ML IV SCH ×2 (00:46→11:33)
[2022-10-30] MEDS: MetroNIDAZOLE 500 MG TABLET PO SCH ×2 (00:47→08:12)
[2022-10-30] MEDS: VANCOMYCIN 1GM/WATER(PEG/NADA) 200 ML IV SCH ×2 (00:47→06:00)
[2022-10-30] MEDS: HEPARIN SODIUM,PORCINE 5,000 UNITS/ML VIAL SQ SCH ×2 (00:50→08:14)
[2022-10-30] MEDS: ACETYLCYSTEINE 10% 100 MG/ML 4 ML NEB SOLUTION NEB SCH ×4 (01:59→20:18)
[2022-10-30] MEDS: ALBUTEROL SULFATE 2.5 MG/0.5 ML NEB SOLUTION NEB SCH ×4 (01:59→20:17)
[2022-10-30] MEDS: PROPOFOL 1000 MG/ISO-OSM 100 ML IV PRN ×3 (02:14→13:46)
[2022-10-30] MEDS: DEXMEDETOMIDINE HCL 400 MCG in SODIUM CHLORIDE 0.9% 96 ML IV PRN ×3 (02:15→13:54)
[2022-10-30] MEDS: LevETIRAcetam 500 MG in DEXTROSE 5%-WATER 100 ML IV SCH ×2 (02:16→16:22)
[2022-10-30] MEDS: CefTRIAXone SODIUM 2 GM in DEXTROSE 5%-WATER 50 ML IV SCH ×2 (03:35→16:23)
[2022-10-30] MEDS: MIDAZOLAM HCL 100 MG in SODIUM CHLORIDE 0.9% 180 ML IV PRN ×2 (03:36→13:55)
[2022-10-30 04:00] VITALS: BP 151/96
[2022-10-30] MEDS: ACYCLOVIR 700 MG in DEXTROSE 5%-WATER 100 ML IV SCH (05:59)
[2022-10-30] MEDS: POTASSIUM CHLORIDE 20 MEQ in DEXTROSE 5%-WATER 1,000 ML IV SCH (07:03)
[2022-10-30 07:29] LABS: ALANINE AMINOTRANSFERASE 53 U/L (12-78); ALBUMIN 2.3 g/dL (3.4-5.0); ALKALINE PHOSPHATASE 166 U/L (46-116); ANION GAP 4 mmol/L (8-16); ASPARTATE AMINOTRANSFERASE 22 U/L (15-37); BILIRUBIN,TOTAL 0.3 mg/dL (0.1-1.0); CALCIUM, TOTAL 9.4 mg/dL (8.8-10.5); CARBON DIOXIDE 31 mmol/L (22-29); CHLORIDE 111 mmol/L (98-107); CREATININE 0.72 mg/dL (0.60-1.30); GLOMERULAR FILTR. RATE CALC > 60 mL/min (>60); GLUCOSE,RANDOM 172 mg/dL (70-110); POTASSIUM 4.4 mmol/L (3.5-5.1); SODIUM SERUM 146 mmol/L (136-145); TOTAL PROTEIN, SERUM 7.2 g/dL (6.4-8.2); UREA NITROGEN, BLOOD 11 mg/dL (7-18)
[2022-10-30 07:32] LABS: BASOPHILS % (AUTO) 0.7 % (0.0-2.0); EOSINOPHILS % (AUTO) 2.5 % (1.0-6.0); HEMATOCRIT 40.5 % (41-53); HEMOGLOBIN 13.6 g/dL (13.5-17.5); LYMPHOCYTES # (AUTO) 1.4 K/uL (1.0-4.8); MEAN CORPUSCULAR HEMOGLOBIN 31.8 pg (26.0-34.0); MEAN CORPUSCULAR HGB CONC 33.5 G/dL (31.0-37.0); MEAN CORPUSCULAR VOLUME 95 fL (80-100); MONOCYTES # (AUTO) 0.4 K/uL (0.1-1.0); MONOCYTES % (AUTO) 3.3 % (2.0-9.0); NEUTROPHILS # (AUTO) 10.8 K/uL (1.8-7.7); NEUTROPHILS % (AUTO) 82.5 % (40.0-70.0); PLATELET COUNT (AUTO) 351 K/uL (150-450); RED BLOOD CELL COUNT(AUTO) 4.27 MIL/uL (4.50-5.90); RED CELL DISTRIBUTION WIDTH 13.3 % (11.5-14.5)
[2022-10-30] MEDS ORDERED: POTASSIUM CHL 10 MEQ/WATER 50 ML IV PRN (07:45)
[2022-10-30] MEDS ORDERED: POTASSIUM CHLORIDE 20 MEQ ER TABLET PO PRN (07:45)
[2022-10-30] MEDS ORDERED: DOCUSATE SODIUM 100 MG/10 ML LIQUID UDCUP NG PRN (07:45)
[2022-10-30 08:00] VITALS: BP 142/83
[2022-10-30] MEDS: PANTOPRAZOLE SODIUM 40 MG/VIAL IVP SCH (08:14)
[2022-10-30] MEDS: METOCLOPRAMIDE HCL 5 MG/ML 2 ML VIAL IVP SCH ×2 (08:15→20:04)
[2022-10-30] MEDS: DEXTROSE 5%-WATER 1,000 ML IV SCH (09:56)
[2022-10-30 10:56] LABS: APPEARANCE,URINE CLEAR (CLEAR); BILIRUBIN,URINE NEGATIVE (NEGATIVE); GLUCOSE, URINE (UA) NEGATIVE (NEGATIVE); KETONES,URINE NEGATIVE (NEGATIVE); LEUKOCYTE ESTERASE ,URINE TRACE (NEGATIVE); NITRATE,URINE NEGATIVE (NEGATIVE); OCCULT BLOOD,URINE SMALL (NEGATIVE); PH,URINE 5.5 (5.0-8.0); PROTEIN,URINE TRACE mg/dL (NEGATIVE); SPECIFIC GRAVITIY, URINE 1.023 (1.003-1.030); UROBILINOGEN,URINE <=1.0 mg/dL (<=1.0)
[2022-10-30 11:41] LABS: BACTERIA,URINE None Seen /HPF (None Seen)
[2022-10-30 12:00] VITALS: BP 106/58
[2022-10-30] MEDS ORDERED: HEPARIN SODIUM,PORCINE 5,000 UNITS/ML VIAL IVP PRN (12:17)
[2022-10-30] MEDS ORDERED: HEPARIN SODIUM,PORCINE 5,000 UNITS/ML VIAL IVP ONE ×2 (12:30)
[2022-10-30] MEDS ORDERED: HEPARIN SODIUM 25000 UNITS/D5W 250 ML IV PRN (12:30)
[2022-10-30 13:17] LABS: BASOPHILS % (AUTO) 0.9 % (0.0-2.0); EOSINOPHILS % (AUTO) 2.3 % (1.0-6.0); HEMATOCRIT 34.8 % (41-53); HEMOGLOBIN 11.6 g/dL (13.5-17.5); LYMPHOCYTES # (AUTO) 1.6 K/uL (1.0-4.8); LYMPHOCYTES % (AUTO) 12.7 % (22.0-44.0); MEAN CORPUSCULAR HEMOGLOBIN 30.9 pg (26.0-34.0); MEAN CORPUSCULAR HGB CONC 33.4 G/dL (31.0-37.0); MEAN CORPUSCULAR VOLUME 93 fL (80-100); MONOCYTES # (AUTO) 0.5 K/uL (0.1-1.0); MONOCYTES % (AUTO) 4.3 % (2.0-9.0); NEUTROPHILS # (AUTO) 9.8 K/uL (1.8-7.7); NEUTROPHILS % (AUTO) 79.8 % (40.0-70.0); PLATELET COUNT (AUTO) 335 K/uL (150-450); RED BLOOD CELL COUNT(AUTO) 3.76 MIL/uL (4.50-5.90)
[2022-10-30 13:30] LABS: PROTHROMBIN TIME 10.5 SEC (9.4-11.6)
[2022-10-30] MEDS: HEPARIN SODIUM 25000 UNITS/D5W 250 ML IV PRN (14:42)
[2022-10-30 16:00] VITALS: BP 156/92
[2022-10-30] MEDS: VANCOMYCIN HCL 1.5 GM in DEXTROSE 5%-WATER 250 ML IV SCH (18:15)
[2022-10-30 20:00] VITALS: BP 139/80
[2022-10-30] MEDS: ACETAMINOPHEN 325 MG TABLET PO PRN (20:03)
[2022-10-30] MEDS: HEPARIN SODIUM,PORCINE 5,000 UNITS/ML VIAL IVP PRN (23:11)
[2022-10-31] VITALS: BP 114/71
[2022-10-31] MEDS: VANCOMYCIN HCL 1.5 GM in DEXTROSE 5%-WATER 250 ML IV SCH ×3 (00:30→16:32)
[2022-10-31] MEDS: ACETYLCYSTEINE 10% 100 MG/ML 4 ML NEB SOLUTION NEB SCH ×4 (00:50→19:47)
[2022-10-31] MEDS: ALBUTEROL SULFATE 2.5 MG/0.5 ML NEB SOLUTION NEB SCH ×4 (00:51→19:47)
[2022-10-31] MEDS: PROPOFOL 1000 MG/ISO-OSM 100 ML IV PRN ×3 (01:01→14:24)
[2022-10-31] MEDS: DEXMEDETOMIDINE HCL 400 MCG in SODIUM CHLORIDE 0.9% 96 ML IV PRN ×4 (02:21→22:00)
[2022-10-31] MEDS: MIDAZOLAM HCL 100 MG in SODIUM CHLORIDE 0.9% 180 ML IV PRN (02:32)
[2022-10-31] MEDS ORDERED: SODIUM CHLORIDE 0.9% 250 ML IV ONE ×2 (02:59→08:25)
[2022-10-31] MEDS: LevETIRAcetam 500 MG in DEXTROSE 5%-WATER 100 ML IV SCH ×2 (03:00→14:24)
[2022-10-31] MEDS: CefTRIAXone SODIUM 2 GM in DEXTROSE 5%-WATER 50 ML IV SCH ×2 (03:47→16:32)
[2022-10-31 04:00] VITALS: BP 140/89
[2022-10-31 06:04] LABS: BASOPHILS % (AUTO) 0.7 % (0.0-2.0); EOSINOPHILS % (AUTO) 2.8 % (1.0-6.0); HEMATOCRIT 33.5 % (41-53); HEMOGLOBIN 11.4 g/dL (13.5-17.5); LYMPHOCYTES # (AUTO) 1.9 K/uL (1.0-4.8); LYMPHOCYTES % (AUTO) 18.7 % (22.0-44.0); MEAN CORPUSCULAR HEMOGLOBIN 31.6 pg (26.0-34.0); MEAN CORPUSCULAR VOLUME 93 fL (80-100); MONOCYTES # (AUTO) 0.5 K/uL (0.1-1.0); NEUTROPHILS # (AUTO) 7.4 K/uL (1.8-7.7); NEUTROPHILS % (AUTO) 72.8 % (40.0-70.0); PLATELET COUNT (AUTO) 333 K/uL (150-450); RED BLOOD CELL COUNT(AUTO) 3.61 MIL/uL (4.50-5.90); RED CELL DISTRIBUTION WIDTH 13.3 % (11.5-14.5)
[2022-10-31 06:08] LABS: ANION GAP 6 mmol/L (8-16); CALCIUM, TOTAL 8.7 mg/dL (8.8-10.5); CARBON DIOXIDE 30 mmol/L (22-29); CHLORIDE 109 mmol/L (98-107); CREATININE 0.64 mg/dL (0.60-1.30); GLOMERULAR FILTR. RATE CALC > 60 mL/min (>60); GLUCOSE,RANDOM 152 mg/dL (70-110); POTASSIUM 3.5 mmol/L (3.5-5.1); SODIUM SERUM 145 mmol/L (136-145); UREA NITROGEN, BLOOD 11 mg/dL (7-18)
[2022-10-31] MEDS: ACETAMINOPHEN 325 MG TABLET PO PRN (06:38)
[2022-10-31] MEDS: HEPARIN SODIUM,PORCINE 5,000 UNITS/ML VIAL IVP PRN ×2 (06:46→20:34)
[2022-10-31] MEDS ORDERED: 0.9% SODIUM CHLORIDE 5 ML NEB SOLUTION NEB ONE ×2 (07:17→13:45)
[2022-10-31 08:00] VITALS: BP 132/82
[2022-10-31] MEDS: PANTOPRAZOLE SODIUM 40 MG/VIAL IVP SCH (08:14)
[2022-10-31] MEDS: METOCLOPRAMIDE HCL 5 MG/ML 2 ML VIAL IVP SCH ×2 (08:15→20:38)
[2022-10-31] MEDS: DEXTROSE 5%-WATER 1,000 ML IV SCH (08:16)
[2022-10-31] MEDS: POTASSIUM CHL 10 MEQ/WATER 50 ML IV PRN ×6 (08:16→22:22)
[2022-10-31 12:00] VITALS: BP 150/101
[2022-10-31 15:23] LABS: OCCULT BLOOD,GASTRIC FLUID POSITIVE (NEGATIVE)
[2022-10-31 16:00] VITALS: BP 151/87
[2022-10-31 20:00] VITALS: BP 132/67
[2022-11-01] VITALS: BP 120/57
[2022-11-01] MEDS: ACETYLCYSTEINE 10% 100 MG/ML 4 ML NEB SOLUTION NEB SCH ×4 (02:17→19:37)
[2022-11-01] MEDS: ALBUTEROL SULFATE 2.5 MG/0.5 ML NEB SOLUTION NEB SCH ×4 (02:17→19:37)
[2022-11-01] MEDS: DEXMEDETOMIDINE HCL 400 MCG in SODIUM CHLORIDE 0.9% 96 ML IV PRN ×4 (02:39→20:06)
[2022-11-01] MEDS: LevETIRAcetam 500 MG in DEXTROSE 5%-WATER 100 ML IV SCH ×2 (02:58→14:21)
[2022-11-01] MEDS: LORazepam 2 MG/ML VIAL IVP PRN (03:17)
[2022-11-01 04:00] VITALS: BP 141/83
[2022-11-01] MEDS: CefTRIAXone SODIUM 2 GM in DEXTROSE 5%-WATER 50 ML IV SCH ×2 (04:12→15:50)
[2022-11-01] MEDS: PROPOFOL 1000 MG/ISO-OSM 100 ML IV PRN ×3 (05:18→19:23)
[2022-11-01 05:59] LABS: ANION GAP 6 mmol/L (8-16); CALCIUM, TOTAL 9.2 mg/dL (8.8-10.5); CARBON DIOXIDE 30 mmol/L (22-29); CHLORIDE 109 mmol/L (98-107); CREATININE 0.56 mg/dL (0.60-1.30); GLOMERULAR FILTR. RATE CALC > 60 mL/min (>60); GLUCOSE,RANDOM 146 mg/dL (70-110); POTASSIUM 3.6 mmol/L (3.5-5.1); SODIUM SERUM 145 mmol/L (136-145); UREA NITROGEN, BLOOD 9 mg/dL (7-18)
[2022-11-01] MEDS: POTASSIUM CHL 10 MEQ/WATER 50 ML IV PRN ×3 (06:22→10:16)
[2022-11-01] MEDS ORDERED: 0.9% SODIUM CHLORIDE 5 ML NEB SOLUTION NEB ONE ×3 (07:34→19:35)
[2022-11-01] MEDS: PANTOPRAZOLE SODIUM 40 MG/VIAL IVP SCH (08:32)
[2022-11-01] MEDS: VANCOMYCIN HCL 1.5 GM in DEXTROSE 5%-WATER 250 ML IV SCH ×4 (08:32→15:51)
[2022-11-01] MEDS: METOCLOPRAMIDE HCL 5 MG/ML 2 ML VIAL IVP SCH ×2 (08:33→20:20)
[2022-11-01] MEDS: DEXTROSE 5%-WATER 1,000 ML IV SCH (08:33)
[2022-11-01] MEDS: HEPARIN SODIUM 25000 UNITS/D5W 250 ML IV PRN (10:17)
[2022-11-01] MEDS: ACETAMINOPHEN 325 MG TABLET PO PRN (11:30)
[2022-11-01 12:00] VITALS: BP 131/70
[2022-11-01 16:00] VITALS: BP 132/72
[2022-11-01 20:00] VITALS: BP 132/72
[2022-11-02] VITALS: BP 132/71
[2022-11-02] MEDS: ALBUTEROL SULFATE 2.5 MG/0.5 ML NEB SOLUTION NEB SCH ×4 (02:03→19:51)
[2022-11-02] MEDS: ACETYLCYSTEINE 10% 100 MG/ML 4 ML NEB SOLUTION NEB SCH ×4 (02:03→19:51)
[2022-11-02] MEDS: HEPARIN SODIUM 25000 UNITS/D5W 250 ML IV PRN (02:06)
[2022-11-02] MEDS: PROPOFOL 1000 MG/ISO-OSM 100 ML IV PRN ×4 (02:09→20:41)
[2022-11-02] MEDS: DEXMEDETOMIDINE HCL 400 MCG in SODIUM CHLORIDE 0.9% 96 ML IV PRN ×4 (02:10→21:45)
[2022-11-02 04:00] VITALS: BP 148/81
[2022-11-02] MEDS: LevETIRAcetam 500 MG in DEXTROSE 5%-WATER 100 ML IV SCH ×2 (04:10→14:04)
[2022-11-02] MEDS: CefTRIAXone SODIUM 2 GM in DEXTROSE 5%-WATER 50 ML IV SCH ×2 (04:18→16:13)
[2022-11-02] MEDS: ACETAMINOPHEN 325 MG TABLET PO PRN ×2 (05:08→21:34)
[2022-11-02] MEDS: HEPARIN SODIUM,PORCINE 5,000 UNITS/ML VIAL IVP PRN (06:32)
[2022-11-02] MEDS ORDERED: 0.9% SODIUM CHLORIDE 5 ML NEB SOLUTION NEB ONE ×2 (07:37→15:17)
[2022-11-02 08:00] VITALS: BP 121/67
[2022-11-02] MEDS: METOCLOPRAMIDE HCL 5 MG/ML 2 ML VIAL IVP SCH ×2 (08:03→20:21)
[2022-11-02] MEDS: PANTOPRAZOLE SODIUM 40 MG/VIAL IVP SCH (08:10)
[2022-11-02] MEDS: DEXTROSE 5%-WATER 1,000 ML IV SCH (08:10)
[2022-11-02 12:00] VITALS: BP 128/66
[2022-11-02] MEDS ORDERED: SODIUM CHLORIDE 0.9% 250 ML IV ONE (14:14)
[2022-11-02 16:00] VITALS: BP 139/78
[2022-11-02 20:00] VITALS: BP 139/76
[2022-11-03] VITALS: BP 154/84
[2022-11-03] MEDS: ALBUTEROL SULFATE 2.5 MG/0.5 ML NEB SOLUTION NEB SCH ×4 (02:07→20:17)
[2022-11-03] MEDS: ACETYLCYSTEINE 10% 100 MG/ML 4 ML NEB SOLUTION NEB SCH ×4 (02:07→20:17)
[2022-11-03] MEDS: PROPOFOL 1000 MG/ISO-OSM 100 ML IV PRN ×2 (03:27→10:24)
[2022-11-03 04:00] VITALS: BP 145/85
[2022-11-03] MEDS: LevETIRAcetam 500 MG in DEXTROSE 5%-WATER 100 ML IV SCH ×2 (04:28→15:07)
[2022-11-03] MEDS: DEXMEDETOMIDINE HCL 400 MCG in SODIUM CHLORIDE 0.9% 96 ML IV PRN ×2 (04:38→11:15)
[2022-11-03] MEDS: HEPARIN SODIUM 25000 UNITS/D5W 250 ML IV PRN ×2 (05:05→19:41)
[2022-11-03 06:46] LABS: BASOPHILS % (AUTO) 1.1 % (0.0-2.0); EOSINOPHILS % (AUTO) 1.9 % (1.0-6.0); HEMATOCRIT 35.2 % (41-53); LYMPHOCYTES # (AUTO) 1.8 K/uL (1.0-4.8); LYMPHOCYTES % (AUTO) 18.4 % (22.0-44.0); MEAN CORPUSCULAR HEMOGLOBIN 32.3 pg (26.0-34.0); MEAN CORPUSCULAR HGB CONC 34.3 G/dL (31.0-37.0); MEAN CORPUSCULAR VOLUME 94 fL (80-100); MONOCYTES # (AUTO) 0.7 K/uL (0.1-1.0); MONOCYTES % (AUTO) 7.1 % (2.0-9.0); NEUTROPHILS % (AUTO) 71.5 % (40.0-70.0); PLATELET COUNT (AUTO) 398 K/uL (150-450); RED BLOOD CELL COUNT(AUTO) 3.73 MIL/uL (4.50-5.90)
[2022-11-03 07:16] LABS: ANION GAP 7 mmol/L (8-16); CALCIUM, TOTAL 9.6 mg/dL (8.8-10.5); CARBON DIOXIDE 30 mmol/L (22-29); CHLORIDE 107 mmol/L (98-107); CREATININE 0.58 mg/dL (0.60-1.30); GLOMERULAR FILTR. RATE CALC > 60 mL/min (>60); GLUCOSE,RANDOM 132 mg/dL (70-110); PHOSPHORUS 4.5 mg/dL (2.5-4.9); POTASSIUM 3.8 mmol/L (3.5-5.1); SODIUM SERUM 144 mmol/L (136-145); UREA NITROGEN, BLOOD 10 mg/dL (7-18)
[2022-11-03 08:00] VITALS: BP 140/81
[2022-11-03] MEDS: PANTOPRAZOLE SODIUM 40 MG/VIAL IVP SCH (08:35)
[2022-11-03] MEDS: METOCLOPRAMIDE HCL 5 MG/ML 2 ML VIAL IVP SCH ×2 (08:36→21:27)
[2022-11-03] MEDS: HEPARIN SODIUM,PORCINE 5,000 UNITS/ML VIAL IVP PRN ×2 (08:36→18:06)
[2022-11-03 10:52] LABS: ABG A-A DIFF O2 104.5 mmHg (10-20.0); ABG BASE EXCESS 3.7 mmol/L (-2.0-3.0); ABG CARBOXYHEMOGLOBIN 0.3 % (0.0-1.5); ABG HCO3 26.9 mmol/L (22.0-26.0); ABG METHEMOGLOBIN 0.4 % (0.0-1.5); ABG OXYGEN CONTENT 16.8 mL/dL (15.0-23.0); ABG OXYGEN SATURATION 94.7 % (95.0-98.0); ABG PCO2 52 mmHg (35-45); ABG PH 7.365 (7.35-7.450); ABG TOTAL HEMOGLOBIN 12.7 G/dL (12.0-18.0); O2 DEVICE,BLOOD GAS VENTILATOR (ROOM AIR); PO2, ARTERIAL BG 83.9 mmHg (88.0-96.0); SITE, BLOOD GAS LFT RADIAL; SOURCE, BLOOD GAS ARTERIAL; TEMPERATURE, FAHRENHEIT, BG 99.9 FAHREN (96.0-98.6); VENT MODE, BG CPAP (ROOM AIR)
[2022-11-03 10:53] LABS: CPAP, BG 5 cm H2O; PRESSURE SUPPORT, BG 8 cm H2O; SPONTANEOUS VT, BG 561 ml
[2022-11-03 12:00] VITALS: BP 157/95
[2022-11-03] MEDS: LORazepam 2 MG/ML VIAL IVP PRN ×2 (13:39→21:27)
[2022-11-03] MEDS: HydrALAZINE HCL 20 MG/ML VIAL IVP PRN ×3 (13:39→17:51)
[2022-11-03] MEDS: ACETAMINOPHEN 325 MG TABLET PO PRN (15:06)
[2022-11-03 16:00] VITALS: BP_SYST 150; BP_DIAS 106; BP_DIAS 108
[2022-11-03] MEDS ORDERED: CefTRIAXone SODIUM 2 GM in DEXTROSE 5%-WATER 50 ML IV SCH (16:00)
[2022-11-03] MEDS: MEROPENEM 1 GM in SODIUM CHLORIDE 0.9% 100 ML IV SCH (17:15)
[2022-11-03 20:00] VITALS: BP 164/83
[2022-11-04] VITALS: BP 159/95
[2022-11-04] MEDS: MEROPENEM 1 GM in SODIUM CHLORIDE 0.9% 100 ML IV SCH ×4 (00:20→22:06)
[2022-11-04] MEDS: LORazepam 2 MG/ML VIAL IVP PRN ×6 (00:29→23:54)
[2022-11-04] MEDS ORDERED: 0.9% SODIUM CHLORIDE 5 ML NEB SOLUTION NEB ONE (01:21)
[2022-11-04] MEDS: ALBUTEROL SULFATE 2.5 MG/0.5 ML NEB SOLUTION NEB SCH ×4 (01:26→19:19)
[2022-11-04] MEDS: ACETYLCYSTEINE 20% 200 MG/ML 4 ML NEB SOLUTION NEB SCH ×4 (02:00→19:19)
[2022-11-04] MEDS: HEPARIN SODIUM,PORCINE 5,000 UNITS/ML VIAL IVP PRN (03:29)
[2022-11-04] MEDS: LevETIRAcetam 500 MG in DEXTROSE 5%-WATER 100 ML IV SCH ×2 (03:35→15:59)
[2022-11-04 04:00] VITALS: BP 112/71
[2022-11-04 08:00] VITALS: BP 173/71
[2022-11-04] MEDS: HydrALAZINE HCL 20 MG/ML VIAL IVP PRN (09:26)
[2022-11-04] MEDS: PANTOPRAZOLE SODIUM 40 MG/VIAL IVP SCH (09:27)
[2022-11-04] MEDS: METOCLOPRAMIDE HCL 5 MG/ML 2 ML VIAL IVP SCH ×2 (09:28→22:04)
[2022-11-04 12:00] VITALS: BP 144/54
[2022-11-04 16:31] VITALS: BP 127/73
[2022-11-04] MEDS: ChlordiazePOXIDE HCL 10 MG CAPSULE PO SCH ×2 (16:33→23:53)
[2022-11-04] MEDS: DEXTROSE 5%-WATER 1,000 ML IV SCH (16:43)
[2022-11-04 20:00] VITALS: BP 155/109
[2022-11-04] MEDS ORDERED: SODIUM CHLORIDE 0.9% 100 ML ONE (21:27)
[2022-11-04] MEDS: HEPARIN SODIUM 25000 UNITS/D5W 250 ML IV PRN (23:00)
[2022-11-05] VITALS: BP 158/101
[2022-11-05] MEDS: ALBUTEROL SULFATE 2.5 MG/0.5 ML NEB SOLUTION NEB SCH ×2 (01:07→07:50)
[2022-11-05] MEDS: ACETYLCYSTEINE 20% 200 MG/ML 4 ML NEB SOLUTION NEB SCH ×2 (01:08→07:50)
[2022-11-05] MEDS: LevETIRAcetam 500 MG in DEXTROSE 5%-WATER 100 ML IV SCH ×2 (02:55→13:56)
[2022-11-05] MEDS: LORazepam 2 MG/ML VIAL IVP PRN ×2 (02:55→16:58)
[2022-11-05 04:00] VITALS: BP 139/85
[2022-11-05 04:15] LABS: APPEARANCE,URINE HAZY (CLEAR); BILIRUBIN,URINE NEGATIVE (NEGATIVE); GLUCOSE, URINE (UA) NEGATIVE (NEGATIVE); LEUKOCYTE ESTERASE ,URINE NEGATIVE (NEGATIVE); NITRATE,URINE NEGATIVE (NEGATIVE); OCCULT BLOOD,URINE LARGE (NEGATIVE); PH,URINE 7.5 (5.0-8.0); PROTEIN,URINE TRACE mg/dL (NEGATIVE); UROBILINOGEN,URINE <=1.0 mg/dL (<=1.0)
[2022-11-05 04:21] LABS: RBC,URINE 51-100 /HPF (0-2)
[2022-11-05 04:22] LABS: AMORPHOUS SEDIMENT,UR Moderate /LPF (None Seen); BACTERIA,URINE Few /HPF (None Seen); SQUAMOUS EPITHELIAL CELL,UR Few /LPF (None Seen)
[2022-11-05 06:15] LABS: BASOPHILS % (AUTO) 1.5 % (0.0-2.0); EOSINOPHILS % (AUTO) 1.1 % (1.0-6.0); HEMATOCRIT 33.5 % (41-53); HEMOGLOBIN 11.5 g/dL (13.5-17.5); LYMPHOCYTES # (AUTO) 2.3 K/uL (1.0-4.8); LYMPHOCYTES % (AUTO) 19.8 % (22.0-44.0); MEAN CORPUSCULAR HEMOGLOBIN 31.9 pg (26.0-34.0); MEAN CORPUSCULAR HGB CONC 34.4 G/dL (31.0-37.0); MEAN CORPUSCULAR VOLUME 93 fL (80-100); MONOCYTES # (AUTO) 1.2 K/uL (0.1-1.0); MONOCYTES % (AUTO) 10.2 % (2.0-9.0); NEUTROPHILS % (AUTO) 67.4 % (40.0-70.0); PLATELET COUNT (AUTO) 527 K/uL (150-450); RED BLOOD CELL COUNT(AUTO) 3.61 MIL/uL (4.50-5.90); RED CELL DISTRIBUTION WIDTH 13.8 % (11.5-14.5)
[2022-11-05 06:32] LABS: MAGNESIUM 1.9 mg/dL (1.80-2.40); PHOSPHORUS 3.3 mg/dL (2.5-4.9)
[2022-11-05 06:33] LABS: ALANINE AMINOTRANSFERASE 53 U/L (12-78); ALBUMIN 2.8 g/dL (3.4-5.0); ALKALINE PHOSPHATASE 133 U/L (46-116); ANION GAP 7 mmol/L (8-16); ASPARTATE AMINOTRANSFERASE 26 U/L (15-37); BILIRUBIN,TOTAL 0.6 mg/dL (0.1-1.0); CALCIUM, TOTAL 9.5 mg/dL (8.8-10.5); CARBON DIOXIDE 31 mmol/L (22-29); CHLORIDE 102 mmol/L (98-107); CREATININE 0.66 mg/dL (0.60-1.30); GLOMERULAR FILTR. RATE CALC > 60 mL/min (>60); GLUCOSE,RANDOM 122 mg/dL (70-110); POTASSIUM 3.5 mmol/L (3.5-5.1); SODIUM SERUM 140 mmol/L (136-145); TOTAL PROTEIN, SERUM 7.3 g/dL (6.4-8.2); UREA NITROGEN, BLOOD 10 mg/dL (7-18)
[2022-11-05] MEDS: MEROPENEM 1 GM in SODIUM CHLORIDE 0.9% 100 ML IV SCH ×3 (06:46→23:37)
[2022-11-05] MEDS: HEPARIN SODIUM,PORCINE 5,000 UNITS/ML VIAL IVP PRN (07:11)
[2022-11-05 08:00] VITALS: BP 144/89
[2022-11-05] MEDS: ACETAMINOPHEN 325 MG TABLET PO PRN (08:27)
[2022-11-05] MEDS: ChlordiazePOXIDE HCL 10 MG CAPSULE PO SCH ×3 (08:27→21:03)
[2022-11-05] MEDS: METOCLOPRAMIDE HCL 5 MG/ML 2 ML VIAL IVP SCH ×2 (08:28→21:04)
[2022-11-05] MEDS: PANTOPRAZOLE SODIUM 40 MG/VIAL IVP SCH (08:28)
[2022-11-05] MEDS: DEXTROSE 5%-WATER 1,000 ML IV SCH (08:30)
[2022-11-05 12:00] VITALS: BP 150/94
[2022-11-05] MEDS ORDERED: ALBUTEROL SULFATE 2.5 MG/0.5 ML NEB SOLUTION NEB PRN (14:45)
[2022-11-05] MEDS ORDERED: ACETYLCYSTEINE 20% 200 MG/ML 4 ML NEB SOLUTION NEB PRN (14:45)
[2022-11-05] MEDS: HEPARIN SODIUM 25000 UNITS/D5W 250 ML IV PRN (15:17)
[2022-11-05 16:02] VITALS: BP 134/96
[2022-11-05 20:00] VITALS: BP 137/81
[2022-11-05] MEDS ORDERED: SODIUM CHLORIDE 0.9% 250 ML IV ONE (23:32)
[2022-11-06] VITALS: BP 148/84
[2022-11-06] MEDS: LevETIRAcetam 500 MG in DEXTROSE 5%-WATER 100 ML IV SCH ×2 (02:47→15:08)
[2022-11-06] MEDS: HEPARIN SODIUM 25000 UNITS/D5W 250 ML IV PRN ×2 (02:48→16:20)
[2022-11-06 04:00] VITALS: BP 137/87
[2022-11-06 05:57] LABS: BASOPHILS % (AUTO) 2.5 % (0.0-2.0); EOSINOPHILS % (AUTO) 2.5 % (1.0-6.0); HEMATOCRIT 36.1 % (41-53); HEMOGLOBIN 12.2 g/dL (13.5-17.5); LYMPHOCYTES # (AUTO) 2.1 K/uL (1.0-4.8); MEAN CORPUSCULAR HEMOGLOBIN 31.6 pg (26.0-34.0); MEAN CORPUSCULAR HGB CONC 33.9 G/dL (31.0-37.0); MEAN CORPUSCULAR VOLUME 93 fL (80-100); MONOCYTES % (AUTO) 10.8 % (2.0-9.0); NEUTROPHILS # (AUTO) 5.7 K/uL (1.8-7.7); NEUTROPHILS % (AUTO) 61.2 % (40.0-70.0); PLATELET COUNT (AUTO) 537 K/uL (150-450); RED BLOOD CELL COUNT(AUTO) 3.87 MIL/uL (4.50-5.90); RED CELL DISTRIBUTION WIDTH 13.6 % (11.5-14.5)
[2022-11-06] MEDS: DEXTROSE 5%-WATER 1,000 ML IV SCH (06:42)
[2022-11-06] MEDS: MEROPENEM 1 GM in SODIUM CHLORIDE 0.9% 100 ML IV SCH ×3 (07:05→22:00)
[2022-11-06 08:00] VITALS: BP 129/86
[2022-11-06] MEDS: METOCLOPRAMIDE HCL 5 MG/ML 2 ML VIAL IVP SCH ×2 (09:37→21:45)
[2022-11-06] MEDS: ChlordiazePOXIDE HCL 10 MG CAPSULE PO SCH ×2 (09:37→21:45)
[2022-11-06] MEDS: PANTOPRAZOLE SODIUM 40 MG/VIAL IVP SCH (09:37)
[2022-11-06 13:00] VITALS: BP 142/98
[2022-11-06 15:16] VITALS: BP 130/93
[2022-11-06] MEDS: DEXTRAN 70 0.1%/HYPROMELL 0.3% 0.9 ML OPHTHALMIC SOLUTION [PF] OU SCH (17:47)
[2022-11-06 20:00] VITALS: BP 137/85
[2022-11-07] VITALS: BP 133/84
[2022-11-07] MEDS: LevETIRAcetam 500 MG in DEXTROSE 5%-WATER 100 ML IV SCH ×2 (02:47→16:01)
[2022-11-07 04:20] VITALS: BP 121/78
[2022-11-07] MEDS: DEXTRAN 70 0.1%/HYPROMELL 0.3% 0.9 ML OPHTHALMIC SOLUTION [PF] OU SCH ×3 (06:14→17:40)
[2022-11-07] MEDS: MEROPENEM 1 GM in SODIUM CHLORIDE 0.9% 100 ML IV SCH ×3 (06:18→23:19)
[2022-11-07 07:02] LABS: GLUCOMETER DEV NAME(LOC) 5N.2C; GLUCOSE,POINT OF CARE 118 MG/DL (70-110)
[2022-11-07 07:02] LABS: GLUCOMETER DEV NAME(LOC) 5N.2C; GLUCOSE,POINT OF CARE 124 MG/DL (70-110)
[2022-11-07 07:02] LABS: GLUCOMETER DEV NAME(LOC) 5N.2C; GLUCOSE,POINT OF CARE 114 MG/DL (70-110)
[2022-11-07 08:19] VITALS: BP 130/80
[2022-11-07] MEDS: PANTOPRAZOLE SODIUM 40 MG/VIAL IVP SCH (08:30)
[2022-11-07] MEDS: METOCLOPRAMIDE HCL 5 MG/ML 2 ML VIAL IVP SCH ×2 (08:30→20:50)
[2022-11-07] MEDS: ChlordiazePOXIDE HCL 10 MG CAPSULE PO SCH ×2 (08:30→20:43)
[2022-11-07 12:09] VITALS: BP 125/84
[2022-11-07 15:23] VITALS: BP 124/83
[2022-11-07] MEDS ORDERED: SODIUM CHLORIDE 0.9% 250 ML IV ONE (15:54)
[2022-11-07] MEDS ORDERED: SODIUM CHLORIDE 0.9% IRRIG BTL 1,000 ML IRRIG ONE (16:11)
[2022-11-07] MEDS: HEPARIN SODIUM 25000 UNITS/D5W 250 ML IV PRN ×2 (18:43→19:48)
[2022-11-07 19:32] VITALS: BP 124/74
[2022-11-08 00:03] VITALS: BP 121/76
[2022-11-08] MEDS: LevETIRAcetam 500 MG in DEXTROSE 5%-WATER 100 ML IV SCH (03:47)
[2022-11-08] MEDS: HEPARIN SODIUM 25000 UNITS/D5W 250 ML IV PRN (03:51)
[2022-11-08] MEDS: DEXTRAN 70 0.1%/HYPROMELL 0.3% 0.9 ML OPHTHALMIC SOLUTION [PF] OU SCH ×3 (05:48→18:18)
[2022-11-08 06:46] VITALS: BP 118/66
[2022-11-08 07:26] VITALS: BP 107/68
[2022-11-08 07:28] VITALS: BP 98/62
[2022-11-08] MEDS: MEROPENEM 1 GM in SODIUM CHLORIDE 0.9% 100 ML IV SCH ×3 (08:24→23:17)
[2022-11-08] MEDS: PANTOPRAZOLE SODIUM 40 MG/VIAL IVP SCH (08:25)
[2022-11-08] MEDS: APIXABAN 5 MG TABLET PO SCH ×2 (08:25→20:55)
[2022-11-08] MEDS: METOCLOPRAMIDE HCL 5 MG/ML 2 ML VIAL IVP SCH ×2 (08:25→20:57)
[2022-11-08 16:24] VITALS: BP 147/88
[2022-11-08 20:17] VITALS: BP 115/60
[2022-11-09 00:11] VITALS: BP 122/74
[2022-11-09 04:53] VITALS: BP 100/58
[2022-11-09] MEDS: DEXTRAN 70 0.1%/HYPROMELL 0.3% 0.9 ML OPHTHALMIC SOLUTION [PF] OU SCH ×2 (05:54→12:27)
[2022-11-09 07:49] VITALS: BP 129/72
[2022-11-09] MEDS ORDERED: APIX5TAB PO (09:46)
[2022-11-09] MEDS: MEROPENEM 1 GM in SODIUM CHLORIDE 0.9% 100 ML IV SCH (09:52)
[2022-11-09] MEDS: APIXABAN 5 MG TABLET PO SCH (09:53)
[2022-11-09] MEDS: PANTOPRAZOLE SODIUM 40 MG/VIAL IVP SCH (09:53)
[2022-11-09] MEDS: METOCLOPRAMIDE HCL 5 MG/ML 2 ML VIAL IVP SCH (09:53)
[2022-11-09 11:56] VITALS: BP 118/69
== END 2022-11-09 14:15 | disposition home or self-care (01) | DRG 720 ==
LOC: EMS 16:40 → AHU 23:12 → ICU 10-22 17:18 → 5N 11-06 13:14
PROVIDERS: ADMIT Internal Medicine; ATTEND Internal Medicine
PROC: 5A1955Z Respiratory Ventilation, Greater than 96 Consecutive Hours (ICD-10-PCS; principal; 2022-10-21)
PROC: 0BH17EZ Insertion of Endotracheal Airway into Trachea, Via Natural or Artificial Opening (ICD-10-PCS; 2022-10-21)
PROC: 5A09357 Assistance with Respiratory Ventilation, Less than 24 Consecutive Hours, Continuous Positive Airway Pressure (ICD-10-PCS; 2022-10-21)
PROC: 4A00X4Z Measurement of Central Nervous Electrical Activity, External Approach (ICD-10-PCS; 2022-10-24)
PROC: 02HV33Z Insertion of Infusion Device into Superior Vena Cava, Percutaneous Approach (ICD-10-PCS; 2022-10-24)
PROC: 05HY33Z Insertion of Infusion Device into Upper Vein, Percutaneous Approach (ICD-10-PCS; 2022-10-24)
PROC: B54MZZA Ultrasonography of Right Upper Extremity Veins, Guidance (ICD-10-PCS; 2022-10-24)
DX: A41.9 Sepsis, unspecified organism (principal); N17.0 Acute kidney failure with tubular necrosis; J80 Acute respiratory distress syndrome; J69.0 Pneumonitis due to inhalation of food and vomit; R65.21 Severe sepsis with septic shock; G92.8 Other toxic encephalopathy; E87.20 Acidosis, unspecified; E83.39 Other disorders of phosphorus metabolism; M62.82 Rhabdomyolysis; G03.9 Meningitis, unspecified; T40.411A Poisoning by fentanyl or fentanyl analogs, accidental (unintentional), initial encounter; Z20.822 Contact with and (suspected) exposure to COVID-19; E87.6 Hypokalemia; B96.1 Klebsiella pneumoniae [K. pneumoniae] as the cause of diseases classified elsewhere; Z16.24 Resistance to multiple antibiotics; R68.0 Hypothermia, not associated with low environmental temperature; F10.10 Alcohol abuse, uncomplicated; G40.909 Epilepsy, unspecified, not intractable, without status epilepticus; E87.0 Hyperosmolality and hypernatremia; F19.10 Other psychoactive substance abuse, uncomplicated; D64.9 Anemia, unspecified; I82.462 Acute embolism and thrombosis of left calf muscular vein; I82.611 Acute embolism and thrombosis of superficial veins of right upper extremity; I82.A11 Acute embolism and thrombosis of right axillary vein; R74.8 Abnormal levels of other serum enzymes; Y92.89 Other specified places as the place of occurrence of the external cause; Z83.3 Family history of diabetes mellitus
CPT/HCPCS: 36245; 36569; 36600; 51702; 70450; 71045; 76705; 76770; 76937; 80048; 80053; 80074; 80076; 80202; 80307; 81001; 82271; 82550; 82570; 82805; 82962; 83605; 83735; 83874; 84100; 84132; 84145; 84300; 84484; 84540; 85025; 85610; 85730; 87040; 87070; 87081; 87086; 87186; 87205; 87449; 87899; 92526; 92610; 93005; 93306; 93970; 93971; 94002; 94003; 94640; 94660; 95816; 97167; 97535; 99291; C9113; G0378; G0480; J0133; J0360; J0696; J0712; J1644; J1940; J2060; J2185; J2250; J2310; J2370; J2405; J2543; J2704; J2765; J3370; J3411; J3475; J3480; J3490; J7030; J7040; J7050; J7060; Q9967; 36415-L1; 36415-TC; J7613